=== PATIENT | female | born 1960 | race Caucasian/White ===

== ENCOUNTER 2017-05-06 08:14 | Emergency (ER) | payer OTHER ==
[2017-05-06 08:20] VITALS: BP 132/69; PULSE 93; RESP 16; TEMP 97.2
--- NOTE | 2017-05-06 08:38 | ED ---
Abdominal Pain HPI - General Chief Complaint: Abdominal Pain Stated Complaint: pain, female gu Time Seen by Provider: 05/06/17 08:23 Source: patient, RN notes reviewed, old records reviewed Mode of arrival: ambulatory Limitations: no limitations - History of Present Illness Initial Comments: This is a 56-year-old female presents emergency department today chief complaint of dysuria for the past week, and vaginal itching and burning with urination. She denies any specific discharge. She reports that she thought was Cynthia infection, she took a Diflucan one week ago. She reports that her symptoms continue to persist. She states it is very pruritic, and she denies that she has scratched the area around. She reports that she's had no fever or chills. No nausea or vomiting o chest pain or shortness of breath. She reports that she has some suprapubic pain radiating towards the left lower quadrant. She reports that she has no uterus or left ovary. 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 She reports she is also currently undergoing menopause. She's been using Premarin cream due to vaginal dryness and itching. She states is not helping as well. - Related Data Previous Rx's Medication Instructions Recorded Ihsioket-Tphfesrhmc-Pvyx Oint 1 applic TOPICAL DAILY #15 packet 05/06/17 [Triple Antibiotic Ointment] Nitrofurantoin Monohyd/M-Cryst 100 mg PO Q12HR #14 cap 05/06/17 [Macrobid] Allergies Allergy/AdvReac Type Severity Reaction Status Date / Time levothyroxine Allergy Unknown Verified 05/06/17 08:20 Review of Systems ROS Statement: Those systems with pertinent positive or pertinent negative responses have been documented in the HPI. ROS Other: All systems not noted in ROS Statement are negative. Past Medical History Past Medical History: Thyroid Disorder History of Any Multi-Drug Resistant Organisms: None Reported Past Surgical History: Hysterectomy Past Psychological History: No Psychological Hx Reported Smoking Status: Never smoker Past Alcohol Use History: Occasional Past Drug Use History: None Reported General Exam - General Exam Comments Initial Comments: This is a 56-year-old female. No acute distress. Limitations: no limitations General appearance: alert, in no apparent distress Head exam: Present: atraumatic, normocephalic, normal inspection Eye exam: Present: normal appearance, PERRL, EOMI. Absent: scleral icterus, conjunctival injection, periorbital swelling Neck exam: Present: normal inspection. Absent: tenderness, meningismus, lymphadenopathy Respiratory exam: Present: normal lung sounds bilaterally. Absent: respiratory distress, wheezes, rales, rhonchi, stridor Cardiovascular Exam: Present: regular rate, normal rhythm, normal heart sounds. Absent: systolic murmur, diastolic murmur, rubs, gallop, clicks GI/Abdominal exam: Present: soft, tenderness (suprapubic tenderness), normal bowel sounds. Absent: distended, guarding, rebound, rigid External exam: Absent: normal external exam (Patient has 1cm lesion over left labia minora, no other lesions. Patient lesion appears to be related to dryness and irritation. No blister-herpetic lesions. ) Speculum exam: Present: normal speculum exam Extremities exam: Present: normal inspection, full ROM, normal capillary refill. Absent: tenderness, pedal edema, joint swelling, calf tenderness Back exam: Present: normal inspection Neurological exam: Present: alert Psychiatric exam: Present: normal affect, normal mood Skin exam: Present: warm, dry, intact, normal color. Absent: rash Course Vital Signs 05/06/17 08:17 Temperature 97.2 F L Pulse Rate 93 Respiratory 16 Rate Blood Pressure 132/69 O2 Sat by Pulse 99 Oximetry Medical Decision Making - Medical Decision Making 56-year-old female presents emergency room with a chief complaint of polyuria, dysuria, and a lesion over her labia is painful whenever she urinates. Patient states that she has a history of atrophic vaginitis, needs to be on Premarin. She is up-to-date on some time, she borrowed her sisters and reports that she was somewhat help. She did take Diflucan as well as he was eased infection. Patient does have one small lesion over the labia minora. Does not appear to be herpetic [place] blisterlike. Patient purchased I tested for herpes a few years ago and was told that she does not have herpes within her work. 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 Patient reports that she has fever or chills. Minimal suprapubic tenderness on exam. Patient urinalysis was completed, no significant signs for infection. Patient's urine appears to be somewhat diluted due to her increased fluid intake. Urine culture will be obtained. Discussed that was seems patient has a ulceration over her labia due to dryness, atrophic vaginitis. Discussed following up with [facility]. Given a referral for [facility] on-call. Discussed putting triple anabiotic ointment over the area as well. Patient agrees to treatment plan will comply. Return parameters were discussed. - Lab Data Lab Results 05/06/17 Range/Units 08:30 Urine Color Light Yellow Urine Appearance Clear (Clear) Urine pH 5.0 (5.0-8.0) Ur Specific [place] 1.004 (1.001-1.035) Urine Protein Negative (Negative) Urine Glucose (UA) Negative (Negative) Urine Ketones Negative (Negative) Urine Blood Negative (Negative) Urine Nitrite Negative (Negative) Urine Bilirubin Negative (Negative) Urine Urobilinogen <2.0 (<2.0) mg/dL Ur Leukocyte Esterase Negative (Negative) Disposition Clinical Impression: Labia irritation, Dysuria Disposition: HOME SELF-CARE Condition: Good Instructions: Vaginal Atrophy (ED) Additional Instructions: Patient advised to apply the antibiotic ointment over the area. Follow-up with [facility]. Take the medications as prescribed. Return to the emergency department if any alarming signs or symptoms occur. Prescriptions: Zcflclut-Nibwekasgi-Bgoz Oint [Triple Antibiotic Ointment] 1 applic TOPICAL DAILY #15 packet Nitrofurantoin Monohyd/M-Cryst [Macrobid] 100 mg PO Q12HR #14 cap Referrals: None,Stated [REFERRING] - 1-2 days Gregoria Valencia MD [STAFF PHYSICIAN] - 1-2 days Time of Disposition: 08:57
[2017-05-06 08:45] LABS: Appearance,Urine Clear (Clear); Bilirubin,Urine Negative (Negative); Blood,Urine Negative (Negative); Color,Urine Light Yellow; Glucose,Urine (UA) Negative (Negative); Ketones,Urine Negative (Negative); Leukocyte Esterase,Urine Negative (Negative); Nitrite,Urine Negative (Negative); Protein,Urine Negative (Negative); Specific Gravity,Urine 1.004 (1.001-1.035); Urobilinogen,Urine <2.0 mg/dL (<2.0)
[2017-05-08 10:50] LABS: Chlamydia trachomatis rRNA Not detected (Not detected); Neisseria gonorrhoeae rRNA Not detected (Not detected)
== END 2017-05-06 09:11 | disposition home or self-care (01) ==
LOC: EC 08:14
DX: N89.8 Other specified noninflammatory disorders of vagina (principal); R30.0 Dysuria; Z88.8 Allergy status to other drugs, medicaments and biological substances; Z90.710 Acquired absence of both cervix and uterus
CPT/HCPCS: 81003; 87070; 87086; 87205; 87491; 87591; 87808; 99284

== ENCOUNTER → 2017-07-18 | Outpatient (CLI) | payer OTHER ==
[2017-07-18 08:14] VITALS: BP 141/81; PULSE 66; TEMP 98.7; BMI 36.1
--- NOTE | 2017-07-18 09:12 | P.HPOB ---
History of Present Illness H&P Date: 07/18/17 Chief Complaint: The patient is here for her routine gynecologic exam and mammogram. This is a 56-year-old with an LMP of 2011. The patient status post [facility] for benign reasons. The patient states she has occasional right pelvic pains. This can occur about 1 to 2 times per week. She does have a history of ovarian cysts in the past. She denies hot flashes. She does have occasional mood swings and night sweats. She also has been having vaginal dryness which has improved with vaginal estrogen tablets. It has been about one year since her last pelvic exam. Review of Systems She denies respiratory, cardiac, or G.I. problems. She states her weight can fluctuate by 5 to 10 pounds. Past Medical History Past Medical History: Hyperlipidemia, Thyroid Disorder Additional Past Medical History / Comment(s): She also has a history of seasonal allergies and diverticulosis. 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 This resolved. She denies any other history of STDs. History of Any Multi-Drug Resistant Organisms: None Reported Past Surgical History: Hysterectomy (TIFFANY in 2011 done for uterine fibroids and abnormal bleeding. This was benign.) Additional Past Surgical History / Comment(s): She also had a previous surgery for ovarian cystectomy. She had a colonoscopy in 2017. Past Psychological History: No Psychological Hx Reported Smoking Status: Never smoker Past Alcohol Use History: Occasional (Approximately 2 drinks per month.) Past Drug Use History: None Reported - Past Family History Mother Family Medical History: COPD Additional Family Medical History / Comment(s): Maternal aunt had breast cancer , cousin had colon cancer in another cousin had cervical cancer. Medications and Allergies Home Medications and Allergies Comment(s): Synthroid 75 g daily, simvastatin 20 mg daily, Claritin 10 mg daily, vitamin D 2000 units daily and Premarin vaginal cream twice weekly. Home Medications Medication Instructions Recorded Confirmed Type Rnxvfjae-Zqufiyzjjx-Empi Oint 1 applic TOPICAL DAILY #15 packet 05/06/17 Rx [Triple Antibiotic Ointment] Nitrofurantoin Monohyd/M-Cryst 100 mg PO Q12HR #14 cap 05/06/17 Rx [Macrobid] Allergies Allergy/AdvReac Type Severity Reaction Status Date / Time levothyroxine Allergy Unknown Verified 05/06/17 08:20 Exam - Vital Signs Vital signs: Vital Signs Temp Pulse BP 07/18/17 08:04 98.7 F 66 141/81 Intake and Output 07/17/17 07/18/17 07/18/17 22:59 06:59 14:59 Other: Weight 86.636 kg Height 5'1", BMI 36. This is a well-developed well-nourished white female who is alert and oriented times 3 in no acute distress. HEENT: Within normal limits. NECK: Supple without mass or thyromegaly. CHEST AND LUNGS: Clear to auscultation. HEART: Regular rate and rhythm. BREASTS: Are without mass or discharge. AXILLARY EXAM: Negative for adenopathy. BACK: Negative for CVA tenderness. ABDOMEN: obese, Soft, nontender, without palpable masses. PELVIC EXAM: Normal external genitalia with mild atrophy. Vagina appearS normal with mild atrophy. There is no unusual discharge. There is no evidence of prolapse. There are no palpable adnexal masses or tenderness. RECTAL EXAM: rectovaginal exam is negative for mass or tenderness and is negative for occult blood. EXTREMITIES: Nontender. IMPRESSION: 1. 56-year-old menopausal female who is status post TIFFANY for benign reasons with normal gynecologic exam. 2. Intermittent right pelvic pains without any significant physical findings at this time. 3. Vaginal dryness improved with vaginal estrogen. She is requesting to go back on the vaginal tablet. PLAN: 1. Pap smears have been discontinued. 2. Self breast examination was discussed. 3. Screening mammogram will be done today. 4. Vagifem 10 g intravaginally 2 times weekly. 5. Pelvic ultrasound will be scheduled. 6. Osteoporosis prevention was discussed. 7. She will return in one year.
--- NOTE | 2017-07-19 11:57 | MM ---
Reason for exam: screening (asymptomatic). Last mammogram was performed 10 months ago. History: Family history of breast cancer in maternal aunt at age 50. Physical Findings: A clinical breast exam by your physician is recommended on an annual basis and results should be correlated with mammographic findings. MG Screening Mammo w CAD Bilateral CC and MLO view(s) were taken. Prior study comparison: September 12, 2016, mammogram. December 18, 2015, mammogram. January 09, 2015, mammogram. May 31, 2013, mammogram. There are scattered fibroglandular densities. There are benign appearing bilateral stable circumscribed masses. No suspicious abnormality. ASSESSMENT: Benign, BI-RAD 2 RECOMMENDATION: Routine screening mammogram of both breasts in 1 year.
== END | disposition home or self-care (01) ==
LOC: WWCWWP 07:58
PROVIDERS: ATTEND Obstetrics & Gynecology
DX: Z12.31 Encounter for screening mammogram for malignant neoplasm of breast (principal)
CPT/HCPCS: 77067

== ENCOUNTER → 2017-07-25 | Outpatient (CLI) | payer OTHER ==
--- NOTE | 2017-07-25 11:44 | US ---
EXAMINATION TYPE: US pelvic complete DATE OF EXAM: 07/25/2017 COMPARISON: NONE CLINICAL HISTORY: R10.2 Pelvic Pain. Right pelvic pain x 1 month, 3, para 2, miscarriage 1, h istory of hysterectomy and partial left oophorectomy 6 years ago TECHNIQUE: . Transabdominal sonographic images of the pelvis were acquired. Transvaginal sonographi c images were medically necessary to better assess the following anatomy: right ovary Date of LMP: 10+ years ago EXAM MEASUREMENTS: Uterus: surgically absent Endometrial Stripe: surgically absent Right Ovary: not seen Left Ovary: not seen 1. Uterus: surgically absent 2. Endometrium: surgically absent 3. Right Ovary: not seen due to overlying bowel gas 4. Left Ovary: not seen due to overlying bowel gas 5. Bilateral Adnexa: wnl 6. Posterior cul-de-sac: wnl IMPRESSION: Postop changes. No significant abnormalities evident.
== END | disposition home or self-care (01) ==
LOC: RADUSWWP 07:45
PROVIDERS: ATTEND Obstetrics & Gynecology
DX: R10.2 Pelvic and perineal pain (principal); Z98.890 Other specified postprocedural states
CPT/HCPCS: 76830; 76857

== ENCOUNTER 2018-07-04 03:20 | Emergency (ER) | payer OTHER ==
[2018-07-04 03:27] VITALS: BP 125/81; RESP 18; TEMP 98.6
[2018-07-04] MEDS ORDERED: ALBUTEROL NEBULIZED 2.5 MG/3 ML INHALATION STA (04:03)
--- NOTE | 2018-07-04 04:32 | ED ---
URI HPI - General Chief Complaint: Upper Respiratory Infection Stated Complaint: URI Time Seen by Provider: 07/04/18 03:58 Source: patient Mode of arrival: ambulatory Limitations: no limitations - History of Present Illness Initial Comments: This patient is 57-year-old woman who presents to have evaluation of her cough, congestion, chest and back aches. The patient states that her symptoms began on Monday with congestion and cough. She states that she was seen by the clinic doctor and was diagnosed with influenza A. She states she was given course of antibiotics and also steroids. Patient presents to have reevaluation because she has continued to cough and now is having some chest and back pains with cough. Patient is not complaining of significant dyspnea but she does note that she is having wheezing that she does not usually. MD Complaint: cough, rhinorrhea, nasal congestion Onset/Timin -: days(s) Consistency: constant Improves With: nothing Worsens With: nothing Associated Symptoms: nasal congestion, cough Treatments Prior to Arrival: antibiotics, other (Steroid) - Related Data Previous Rx's Medication Instructions Recorded Ehssnkoo-Kyjrfjsnnz-Axhx Oint 1 applic TOPICAL DAILY #15 packet 05/06/17 [Triple Antibiotic Ointment] Nitrofurantoin Monohyd/M-Cryst 100 mg PO Q12HR #14 cap 05/06/17 [Macrobid] Albuterol Inhaler [Ventolin Hfa 1 - 2 puff INHALATION Q6HR PRN #1 07/04/18 Inhaler] inhaler Promethazine 6.25MG/5Ml [Phenergan 5 ml PO Q4HR PRN #120 ml 07/04/18 Syrup] Allergies Allergy/AdvReac Type Severity Reaction Status Date / Time levothyroxine Allergy Unknown Verified 07/04/18 03:27 Review of Systems ROS Statement: Those systems with pertinent positive or pertinent negative responses have been documented in the HPI. ROS Other: All systems not noted in ROS Statement are negative. Constitutional: Reports: fever. Denies: weakness Respiratory: Reports: as per HPI, cough, wheezes. Denies: dyspnea, hemoptysis Cardiovascular: Reports: as per HPI, chest pain. Denies: palpitations, orthopnea, edema, syncope Gastrointestinal: Denies: abdominal pain, vomiting, diarrhea Musculoskeletal: Reports: back pain Skin: Denies: rash Neurological: Denies: headache, weakness, numbness Past Medical History Past Medical History: Hyperlipidemia, Thyroid Disorder Additional Past Medical History / Comment(s): diverticulosis, HPV History of Any Multi-Drug Resistant Organisms: None Reported Past Surgical History: Hysterectomy Additional Past Surgical History / Comment(s): ovarian cystectomy. colonosscopy. Past Psychological History: No Psychological Hx Reported Smoking Status: Never smoker Past Alcohol Use History: Occasional Past Drug Use History: None Reported - Past Family History Mother Family Medical History: COPD Additional Family Medical History / Comment(s): Maternal aunt had breast cancer, cousin had colon cancer in another cousin had cervical cancer. General Exam Limitations: no limitations General appearance: alert, in no apparent distress Head exam: Present: atraumatic, normocephalic Eye exam: Present: normal appearance ENT exam: Present: normal oropharynx Neck exam: Present: normal inspection Respiratory exam: Present: wheezes, chest wall tenderness. Absent: respiratory distress, rales, rhonchi, stridor, accessory muscle use, decreased breath sounds, prolonged expiratory Cardiovascular Exam: Present: regular rate, normal rhythm, normal heart sounds. Absent: systolic murmur, diastolic murmur, rubs, gallop GI/Abdominal exam: Present: soft. Absent: distended, tenderness, guarding, rebound, rigid, mass Extremities exam: Present: normal inspection, normal capillary refill. Absent: pedal edema, calf tenderness Back exam: Present: normal inspection, paraspinal tenderness. Absent: CVA tenderness (R), CVA tenderness (L), vertebral tenderness Neurological exam: Present: alert Skin exam: Present: warm, dry, intact, normal color. Absent: rash Course Vital Signs 07/04/18 07/04/18 07/04/18 03:23 04:23 04:30 Temperature 98.6 F Pulse Rate 89 85 85 Respiratory 18 Rate Blood Pressure 125/81 O2 Sat by Pulse 98 Oximetry Disposition Clinical Impression: Bronchitis Disposition: HOME SELF-CARE Condition: Fair Instructions (If sedation given, give patient instructions): Acute Bronchitis (ED) Prescriptions: Albuterol Inhaler [Ventolin Hfa Inhaler] 1 - 2 puff INHALATION Q6HR PRN #1 inhaler PRN Reason: Wheezing Promethazine 6.25MG/5Ml [Phenergan Syrup] 5 ml PO Q4HR PRN #120 ml PRN Reason: Cough Is patient prescribed a controlled substance at d/c from ED?: No Referrals: Urmila Russell MD [Primary Care Provider] - 1-2 days
[2018-07-04] MEDS ORDERED: IBUPROFEN 400 MG TAB PO STA ×2 (04:53→05:06)
--- NOTE | 2018-07-04 04:56 | XR ---
EXAM: XR Chest, 1 View CLINICAL HISTORY: ITS.REASON XR Reason: Pain TECHNIQUE: Frontal view of the chest. COMPARISON: No relevant prior studies available. FINDINGS: Accentuation of the cardiac and mediastinal silhouette by portable technique. Suspect cardiac silhouette is upper limits normal size allowing for technique. No overt edema, consolidation or other acute cardiopulmonary findings. IMPRESSION: No acute cardiopulmonary findings.
[2018-07-04 05:26] VITALS: PULSE 65
== END 2018-07-04 05:26 | disposition home or self-care (01) ==
LOC: EC 03:20 → SUPCPDRO 03:20 → EC 05:26
DX: J40 Bronchitis, not specified as acute or chronic (principal); Z88.8 Allergy status to other drugs, medicaments and biological substances
CPT/HCPCS: 71045; 94640; 99283

== ENCOUNTER → 2018-09-18 | Outpatient (CLI) | payer OTHER ==
[2018-09-18 09:29] VITALS: BP 139/82; PULSE 57; RESP 16; TEMP 97.7; BMI 35.5
--- NOTE | 2018-09-18 10:07 | P.HPOB ---
History of Present Illness H&P Date: 09/18/18 Chief Complaint: The patient is here for her routine gynecologic exam and ma mmogram. This is a 58-year-old with an LMP [id number]. The patient is status post [facility] for benign reasons. The patient no longer is using vaginal estrogen and has been doing fine with KY jelly. She uses this for vaginal dryness. The patient denies hot flashes. She is without gynecologic complaints. Review of Systems The patient has gained four pounds over the last year. She denies respiratory, cardiac, or G.I. problems. Past Medical History Past Medical History: Hyperlipidemia, Thyroid Disorder Additional Past Medical History / Comment(s): diverticulosis and seasonal allergies. 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 She has no other history of STDs. History of Any Multi-Drug Resistant Organisms: None Reported Past Surgical History: Hysterectomy Additional Past Surgical History / Comment(s): ovarian cystectomy. colonoscopy 2017. TIFFANY in 2011. 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 - Past Family History Mother Family Medical History: COPD Additional Family Medical History / Comment(s): Maternal aunt had breast cancer, cousin had colon cancer in another cousin had cervical cancer. Medications and Allergies Home Medications Medication Instructions Recorded Confirmed Type Albuterol Inhaler [Ventolin Hfa 1 - 2 puff INHALATION Q6HR PRN #1 07/04/18 09/18/18 Rx Inhaler] inhaler Biotin 5,000 mcg PO DAILY 09/18/18 09/18/18 History Cholecalciferol (Vitamin D3) 2,000 unit PO DAILY 09/18/18 09/18/18 History [Vitamin D3] Simvastatin [Zocor] 20 mg PO DAILY 09/18/18 09/18/18 History Zinc 50 mg PO DAILY 09/18/18 09/18/18 History Allergies Allergy/AdvReac Type Severity Reaction Status Date / Time levothyroxine Allergy Unknown Verified 09/18/18 09:21 Exam Vital Signs Temp Pulse Resp BP Pulse Ox 09/18/18 09:25 97.7 F 57 L 16 139/82 97 Intake and Output 09/17/18 09/18/18 09/18/18 22:59 06:59 14:59 Other: Weight 85.275 kg Height 5'1", weight 188 pounds, BMI 35.5. This is a well-developed well-nourished heavyset white female who is alert and oriented times 3 in no acute distress. HEENT: Within normal limits. NECK: Supple without mass or thyromegaly. CHEST AND LUNGS: Clear to auscultation. HEART: Regular rate and rhythm. BREASTS: Are without mass or discharge. AXILLARY EXAM: Negative for adenopathy. BACK: Negative for CVA tenderness. ABDOMEN: Soft, nontender, without palpable masses. PELVIC EXAM: External genitalia appears normal with mild atrophy. Vagina appears normal with mild atrophy. There is a grade 2 cystocele. The vaginal cuff is well supported. Bimanual examination is negative for mass or tenderness. RECTAL EXAM: Rectovaginal exam is negative for mass or tenderness and is negative for occult blood. EXTREMITIES: Nontender. IMPRESSION: 1. 58-year-old menopausal female status post TIFFANY with asymptomatic grade 2 cystocele. PLAN: 1. Pap smears have been discontinued. 2. Self breast awareness was discussed with the patient. 3. Screening mammogram will be done today. 4. Osteoporosis prevention was discussed. I have stressed the importance of adequate calcium, vitamin D and regular exercise. Recommended amounts of calcium and vitamin D were also discussed. 5. She was advised to return in one year for her annual well woman exam.
--- NOTE | 2018-09-19 08:44 | MM ---
Reason for exam: screening (asymptomatic). Last mammogram was performed 1 year and 2 months ago. History: Family history of breast cancer in maternal aunt at age 50. Physical Findings: A clinical breast exam by your physician is recommended on an annual basis and results should be correlated with mammographic findings. MG Screening Mammo w CAD Bilateral CC and MLO view(s) were taken. Prior study comparison: July 18, 2017, bilateral MG screening mammo w CAD. September 12, 2016, mammogram. There are scattered fibroglandular densities. There is a stable right upper outer quadrant posterior depth mass back to 2013. No suspicious abnormality. Benign right upper inner quadrant anterior depth fat necrosis. No significant changes when compared with prior studies. ASSESSMENT: Benign, BI-RAD 2 RECOMMENDATION: Routine screening mammogram of both breasts in 1 year.
== END ==
LOC: WWCWWP 08:40
PROVIDERS: ATTEND Obstetrics & Gynecology
DX: Z12.31 Encounter for screening mammogram for malignant neoplasm of breast (principal)
CPT/HCPCS: 77067

== ENCOUNTER → 2019-12-24 | Outpatient (CLI) | payer BC, OTHER ==
--- NOTE | 2019-12-25 13:36 | MM ---
Reason for exam: screening (asymptomatic). Last mammogram was performed 1 year and 3 months ago. History: Family history of breast cancer in maternal aunt at age 50. Physical Findings: A clinical breast exam by your physician is recommended on an annual basis and results should be correlated with mammographic findings. MG Screening Mammo w CAD Bilateral CC, MLO, and XCCL view(s) were taken. Prior study comparison: September 18, 2018, bilateral MG screening mammo w CAD. July 18, 2017, bilateral MG screening mammo w CAD. The breast tissue is almost entirely fat. There is chronic nodularity bilaterally. No significant changes when compared with prior studies. ASSESSMENT: Benign, BI-RAD 2 RECOMMENDATION: Routine screening mammogram of both breasts in 1 year.
== END | disposition home or self-care (01) ==
LOC: RADMAMWWP 16:13
PROVIDERS: ATTEND Obstetrics & Gynecology
DX: Z12.31 Encounter for screening mammogram for malignant neoplasm of breast (principal)
CPT/HCPCS: 77067

== ENCOUNTER → 2021-03-29 | Outpatient (CLI) | payer BC, OTHER ==
[2021-03-29 11:08] LABS: HCT 36.4 % (34.0-46.0); HGB 12.5 gm/dL (11.4-16.0); MCH 30.2 pg (25.0-35.0); MCHC 34.5 g/dL (31.0-37.0); MCV 87.6 fL (80.0-100.0); Mean Platelet Volume 7.2; Platelet Count 372 k/uL (150-450); RBC 4.16 m/uL (3.80-5.40); WBC 7.9 k/uL (3.8-10.6)
[2021-03-29 11:21] LABS: Albumin 3.9 g/dL (3.5-5.0); Appearance,Urine Clear (Clear); Bilirubin,Urine Negative (Negative); Blood,Urine Negative (Negative); Calcium 9.6 mg/dL (8.4-10.2); Color,Urine Light Yellow; Glucose,Urine (UA) Negative (Negative); Ketones,Urine Negative (Negative); Leukocyte Esterase,Urine Negative (Negative); Nitrite,Urine Negative (Negative); PH, Urine 7.5 (5.0-8.0); Potassium 4.3 mmol/L (3.5-5.1); Protein,Urine Negative (Negative); Specific Gravity,Urine 1.011 (1.001-1.035); Total Bilirubin 0.4 mg/dL (0.2-1.3); Urobilinogen,Urine <2.0 mg/dL (<2.0)
[2021-03-29 11:25] LABS: INR 0.9 (<1.2); Partial Thromboplastin Time 22.6 sec (22.0-30.0); Prothrombin Time 9.5 sec (9.0-12.0)
== END | disposition home or self-care (01) ==
LOC: LABPAT 09:57
PROVIDERS: ATTEND Orthopaedic Surgery
DX: Z01.812 Encounter for preprocedural laboratory examination (principal); M17.11 Unilateral primary osteoarthritis, right knee
CPT/HCPCS: 80053; 81003; 85027; 85610; 85730; 87070

== ENCOUNTER 2021-04-07 10:54 | Day surgery (SDC) | payer BC, OTHER ==
[2021-04-01 15:44] VITALS: BMI 35.9
[~2021-04-07 10:54] MED LIST: ACETAMINOPHEN TAB 500 MG TAB PO PRN; DEXAMETHASONE SOD PHOSPHATE 10 MG/ML 1 ML VIAL IV PRN; DEXAMETHASONE SOD PHOSPHATE 4 MG/ML 1 ML VIAL IV ONE; DOCUSATE 100 MG CAP PO PRN; FAMOTIDINE 20 MG/2 ML VIAL IVP PRN; HYDROmorphone 0.5 MG/0.5 ML SYRINGE IVP PRN; KETOROLAC 15 MG/ML 1 ML VIAL IVP PRN; LIDOCAINE 1% (10MG/ML) FOR IV START INTRADERMA PRN; MIDAZOLAM 2 MG/2 ML VIAL IV PRN; ONDANSETRON 4 MG/2 ML VIAL IVP ONE; ONDANSETRON 4 MG/2 ML VIAL IVP PRN; ROPIVACAINE 246.25 MG, EPINEPHrine 0.5 MG, KETOROLAC (30 mg/mL) 30 MG, cloNIDine HCL/PF... MISCELLANE PRN; TRANEXAMIC ACID 1,000 MG in SODIUM CHLORIDE 0.9% 100 ML IVPB PRN; VANCOMYCIN 1,000 MG in SODIUM CHLORIDE 0.9% 250 ML IVPB PRN; oxyCODONE ER 10 MG TAB.ER.12H PO PRN
[2021-04-07] MEDS ORDERED: ROPIVACAINE/EPI/CLONIDINE/KET 50 ML SYRINGE MISCELLANE PRN (11:07)
[2021-04-07] MEDS ORDERED: TRANEXAMIC ACID 1,000 MG in SODIUM CHLORIDE 0.9% 100 ML IVPB ONE (11:20)
[2021-04-07] MEDS ORDERED: KETOROLAC 30 MG/ML 1 ML VIAL ONE (11:37)
[2021-04-07] MEDS: LACTATED RINGERS 1,000 ML IV SCH ×2 (11:45→18:37)
--- NOTE | 2021-04-07 12:28 | P.ANPRN ---
Procedure Note - Anesthesia - Nerve Block Performed Right Adductor Canal Single Time Out Performed: Yes Date of Procedure: 04/07/21 Procedure Start Time: 12:07 Procedure Stop Time: 12:12 Location of Patient: PreOp Indication: Acute Post-Operative Pain, Requested by Surgeon Sedation Type: Sedate with meaningful contact maintained Preparation: Sterile Prep, Sterile Dressing Position: Supine Catheter: None Needle Types: Facet Needle Gauge: 20 Ultrasound used to visualize needle placement: Yes Ultrasound used to observe medication spread: Yes Injectate: 0.5% Ropivacaine (see comment for volume) (20 ml + decadron 4 mg) Blood Aspirated: No Pain Paresthesia on Injection Noted: No Resistance on Injection: Normal Image Stored and Saved: Yes Events: Uneventful and Well Tolerated Right iPack Single Time Out Performed: Yes Date of Procedure: 04/07/21 Procedure Start Time: 12:13 Procedure Stop Time: 12:16 Location of Patient: PreOp Indication: Acute Post-Operative Pain, Requested by Surgeon Sedation Type: Sedate with meaningful contact maintained Preparation: Sterile Prep, Sterile Dressing Position: Left Lateral Catheter: None Needle Types: Facet Needle Gauge: 20 Ultrasound used to visualize needle placement: Yes Ultrasound used to observe medication spread: Yes Injectate: 0.5% Ropivacaine (see comment for volume) (10 ml + decadron 2 mg) Blood Aspirated: No Resistance on Injection: Normal Image Stored and Saved: Yes Events: Uneventful and Well Tolerated
[2021-04-07] MEDS ORDERED: ceFAZolin 3,000 MG in SODIUM CHLORIDE 0.9% IRRIGATIO 3,000 ML IRRIGATION ONE (14:05)
[2021-04-07] MEDS ORDERED: LACTATED RINGERS 1,000 ML IV ONE (15:38)
[2021-04-07] MEDS ORDERED: HYDROcodone/APAP 5-325MG 1 EACH TAB PO PRN (16:17)
[2021-04-07] MEDS ORDERED: ONDANSETRON 4 MG/2 ML VIAL IVP PRN (16:17)
[2021-04-07] MEDS ORDERED: HYDROmorphone 0.2 MG/1 ML SYRINGE IVP PRN (16:17)
[2021-04-07] MEDS ORDERED: HYDROmorphone 1 MG/ML 1 ML SYRINGE IVP PRN (16:17)
[2021-04-07] MEDS ORDERED: NALOXONE 0.4 MG/ML 1 ML VIAL IV PRN (16:17)
--- NOTE | 2021-04-07 16:40 | P.OP ---
Date of Procedure: 04/07/21 Preoperative Diagnosis: 1. Right knee osteoarthritis 2. BMI 38.5 Postoperative Diagnosis: Same Procedure(s) Performed: Right total knee arthroplasty Implants: 1. Andi triathlon size #3 CR femur 2. Irving triathlon size #3 universal tibial baseplate 3. Andi triathlon size #3, 9 mm CS polyethylene 4. Andi triathlon 27 mm symmetric patellar button Anesthesia: spinal Surgeon: Onesimo Jackson Ship Surveyor #1: Jolynn Briggs Estimated Blood Loss (ml): 150 IV fluids (ml): 1,200 Pathology: none sent Condition: stable Disposition: PACU Indications for Procedure: The patient is a very pleasant previously healthy 60-year-old female who has had a long-standing history of problems with right knee pain. She had seen several providers before knee and had been treated for over 1 year with progressively worsening knee pain. She had failed a long course of nonsurgical treatment and came in requesting total knee arthroplasty. She had x-rays and an MRI that showed diffuse tricompartmental arthritis. She had previously responded well to an intra-articular corticosteroid injection, but eventually developed tolerance to her injections. She had no pain in her hip and x-rays were normal. I sent her to a spine doctor to evaluate her back and he felt all of the pain in her leg was coming from her knee. We discussed continued nonsurgical treatment, arthroscopy, and arthroplasty. Due to the patient's diffuse pain and tricompartmental arthritis we both agreed that she had filled conservative treatment and was a good candidate for a total knee replacement. We discussed the potential risks and complications of surgery including but certainly not limited to risks from anesthesia, superficial infection, deep periprosthetic joint infection, extensor mechanism problems, loosening, instability, stiffness, damage to local blood vessels or nerves, periprosthetic fracture, and inability to regain preinjury level of function, generalized to satisfaction with her surgical outcome, DVT, PE, other medical complications, need for revision surgery, and possibly loss of life or limb. The patient voiced her understanding of these potential complications and also acknowledges that other, less common complications are possible. The patient provided her verbal and written consent to go forward with surgery. Operative Findings: The patient had severe full-thickness cartilage loss in the medial and patellofemoral compartment and moderate grade cartilage loss in the lateral compartment Description of Procedure: The patient is identified in preoperative holding and the correct right leg was marked with my initials. We reviewed the consent form and all of her questions were answered. A block was placed by anesthesia. The patient was then brought back to the operating room. She was given a spinal anesthetic. She was carefully transferred onto the operating room table. The tourniquet was applied to the proximal aspect of the right leg. The patient was secured to the OR table and a foot rest and post were placed to allow the leg to sit at 90 of flexion. A chlorhexidine pre-scrub was performed. The right leg was then p repped and draped in the standard sterile fashion. Prior to starting surgery timeout was performed identifying the correct patient, operative extremity, and procedure. The patient's leg was then elevated, exsanguinated with an Esmarch bandage, and the tourniquet was inflated to 300 mmHg. I began by making a straight anterior approach to the knee. Dissection was carried down through the first fascial layer. Medial and lateral flaps were raised deep to the fascia. I performed a medial parapatellar arthrotomy. There was a large serous effusion. On inspection of the joint there was full-th ickness cartilage loss in the medial and patellofemoral compartments and moderate cartilage loss in the lateral compartment. A medial release was then performed followed by excision of the fat pad. The patella was measured and provisionally cut using a freehand technique. The ACL, PCL, and anterior horn of the lateral meniscus were excised. Entrance the femoral canal was then gained with an opening drill. An intramedullary guide was placed and the cut guide was set at a 5 valgus cut and an 8 mm resection. The cutting block was pinned in place, retractors were placed to protect the collateral ligaments and extensor mechanism, and the distal femoral cut was made. I verified that a flat cut was made using the intramedullary guide. Attention was then turned to the tibia. The tibia was completely subluxed out from under the femur and circumferentially exposed. An extra medullary guide was attached at the ankle. A 9 mm resection was measured off the lateral compartment and slope was matched the patient's anatomy. The cutting block was pinned into place and the tibia was cut with a sagittal saw. The cut portion of the tibia was removed. An 18 mm spacer block was then introduced to evaluate the extension space. The knee appeared straight, able to fully extend, and had reasonable balance. Attention was then turned to the flexion gap. The femur was initially sized to a size 4. A Guzman tensiometer was then used to set our flexion gap and rotation. The 4-in-1 size #4 cutting block was pinned into place and all cuts made using a sagittal saw. We sized the tibia at this point to a size #3. Remnants of the medial and lateral meniscus and posterior osteophytes were then removed area and local was injected. We then trialed with a size 4 femur, size 3 tibia and a 9 mm poly-. The knee fully extend and had flexion to 120. The knee was well balanced throughout flexion and extension. On inspection the size 4 femur overhung laterally. The trial components were removed and the 4-in-1 cutting block for a size 3 femur was placed and pinned and the anterior cut was made. There is no evidence of notching. We then trialed with a size 3 femur, size 3 tibial baseplate, and 9 mm poly-. The knee fully extended and flexed to 120. The knee was well balanced throughout. Drill holes were then made through the femoral trial for the lugs. The tibial baseplate was then pinned into place taking care to match rotation to the tibial tubercle reamed and punched. The patella was then sized and 3 lug holes were drilled. All trial implants were removed and the knee was thoroughly irrigated. We then proceeded to mix cement and implant the tibia, femur, and patellar button. The knee was fully extended and the cement was allowed to fully cure. The tourniquet was let down and all bleeders were controlled. All extra cement was removed. The knee was thoroughly irrigated with pulsatile lavage and a 3 minute dilute Betadine soaked. The knee fully extended and flexed to 120 with the final implants in place and the knee was well balanced throughout the arc of motion. The patella tracked midline once the tourniquet was down. A deep drain was placed. I nterrupted Vicryl stitches were used to reapproximate the extensor mechanism and arthrotomy. A multilayer closure was then performed using monofilament, barbed sutures. The skin was closed using Monocryl and reinforced with Dermabond. A sterile dressing was applied over the incision and drain. I verified that all instrument, sponge, and sharp counts were correct. The patient was then awoken from her sedation, transferred to a gurney, and brought to recovery having tolerated the procedure well. Jolynn Briggs PA-C was required as a skilled catering administrative assistant due to the complexity of the surgical procedure. Plan: The patient can weight-bear as tolerated on her right leg. She will receive postoperative training exam the cast it and postoperative antibiotics. We will remove her drain tomorrow. She will be managed with aspirin for DVT prophylaxis. We will plan on discharge home tomorrow for pain is controlled and she passes physical therapy.
--- NOTE | 2021-04-07 16:50 | XR ---
Limited right knee HISTORY: Postop status post arthroplasty 2 views the right knee Patient is status post right knee arthroplasty. There is anatomic alignment. Lucency is present withi n the soft tissues. There is a drain present anteriorly extending towards the region of the patellofe moral joint. IMPRESSION: Orthopedic follow-up.
[2021-04-07] MEDS: HYDROcodone/APAP 5-325MG 1 EACH TAB PO PRN (21:16)
[2021-04-07] MEDS: ASPIRIN 81 MG PO SCH (21:18)
[2021-04-07] MEDS: SENNOSIDES-DOCUSATE SODIUM 1 EACH TAB PO SCH (21:18)
[2021-04-08] MEDS: LACTATED RINGERS 1,000 ML IV SCH ×5 (01:32→23:40)
[2021-04-08 06:46] LABS: Basophils % (A) 0 %; Eosinophils % (A) 0 %; HCT 37.2 % (34.0-46.0); HGB 11.8 gm/dL (11.4-16.0); Lymphocytes # (A) 1.1 k/uL (1.0-4.8); Lymphocytes % (A) 7 %; MCH 29.3 pg (25.0-35.0); MCHC 31.7 g/dL (31.0-37.0); MCV 92.3 fL (80.0-100.0); Mean Platelet Volume 7.2; Monocytes # (A) 0.7 k/uL (0-1.0); Monocytes % (A) 4 %; Neutrophils # (A) 14.3 k/uL (1.3-7.7); Neutrophils % (A) 88 %; Platelet Count 383 k/uL (150-450); RBC 4.03 m/uL (3.80-5.40); RDW 11.9 % (11.5-15.5); WBC 16.2 k/uL (3.8-10.6)
[2021-04-08] MEDS: HYDROcodone/APAP 5-325MG 1 EACH TAB PO PRN ×3 (08:27→22:32)
[2021-04-08] MEDS: ASPIRIN 81 MG PO SCH ×2 (08:27→20:19)
[2021-04-08] MEDS: hydrOXYzine pamoate 25 MG CAP PO PRN ×2 (08:28→13:27)
--- NOTE | 2021-04-08 12:39 | P.PN ---
Subjective Progress Note Date: 04/08/21 This patient is a 60- year old female who is status-post right total knee arthroplasty on 04/07/21. Today is post-operative day #1. She is seen and examined bedside. She states the pain in her knee is well-controlled. Patient was up walking to the bedside commode last evening. Patient denies chest pain, shortness of breath, nausea, vomiting. Vital signs stable. Objective - Vital Signs Vital signs: Vital Signs Temp 98.4 F 04/08/21 05:00 Pulse 77 04/08/21 05:00 Resp 16 04/08/21 05:00 BP 120/79 04/08/21 05:00 Pulse Ox 91 L 04/08/21 05:00 Intake & Output 04/07/21 04/08/21 04/08/21 18:59 06:59 18:59 Intake Total 1551 1250 Output Total 100 80 Balance 1451 1170 Weight 92.4 kg Intake: IV 1551 Intake, IV Titration 1250 Amount Lactated Ringers 1,000 ml 1200 @ 100 mls/hr IV .Q10H GEORGETTE Rx#:[id number] ceFAZolin 2 gm In Sodium 50 Chloride 0.9% 50 ml @ 100 mls/hr IVPB Q8HR GEORGETTE Rx# :[id number] Output: Drainage 80 Right 80 Estimated Blood Loss 100 Other: Voiding Method Bedside Commode # Voids 1 4 - Exam On examination, patient is sitting up in the bed in no acute distress. She is alert and orientated x3. On inspection of the right knee, there is an Optifoam dressing intact. No bleeding or drainage through the dressing. Mild swelling of the knee. Motor and sensory function is intact of the right lower extremity. Dorsalis pedis pulse +2, right lower extremity is warm and well-perfused with brisk capillary refill. Calf is soft and non-tender. - Labs CBC & Chem 7: 04/08/21 05:55 Labs: Abnormal Lab Results - Last 24 Hours (Table) 04/08/21 Range/Units 05:55 WBC 16.2 H (3.8-10.6) k/uL Neutrophils # 14.3 H (1.3-7.7) k/uL Assessment and Plan Assessment: Status-post right total knee arthroplasty on 04/07/21. Post-operative day #1. Plan: - Patient may weight-bear as tolerated on the operative leg with a walker. - Keep OptiFoam dressing in place. - Drain was removed bedside this morning. - Physical therapy for gait and balance training. - Pain management as needed. Aspirin 81mg BID x 4 weeks for DVT prophylaxis. - Post-operative antibiotics complete. - Internal medicine consulted for gabriella-operative medical management. - Anticipate discharge home tomorrow with home health care and home PT.
[2021-04-08] MEDS: HYDROmorphone 0.5 MG/0.5 ML SYRINGE IVP PRN ×2 (15:51→20:18)
--- NOTE | 2021-04-08 17:05 | P.CONS ---
History of Present Illness - Reason for Consult Consult date: 04/08/21 - Chief Complaint Medical management - History of Present Illness 60-year-old woman with medical history of osteoarthritis, hyperlipidemia, hypothyroidism who presented for elective right arthroplasty of the knee. She is doing well postoperatively with her only complaint being pain in the knee, which she says improves with ambulation. She has no other complaints of nausea, vomiting, chest pain, palpitations, syncope, presyncope, cough, dyspnea, abdominal pain, constipation, diarrhea, dysuria, numbness/weakness. Her only medical issues are hypothyroidism and hyperlipidemia. Review of Systems All Systems reviewed and pertinent positives and negatives noted in HPI, all other symptoms are negative Past Medical History Past Medical History: Hyperlipidemia, Hypertension, Thyroid Disorder Additional Past Medical History / Comment(s): heart palpitations,diverticulosis and seasonal allergies. 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 She has no other history of STDs. History of Any Multi-Drug Resistant Organisms: None Reported Past Surgical History: Hysterectomy Additional Past Surgical History / Comment(s): ovarian cystectomy. colonoscopy 2016. TIFFANY in 2011. Past Anesthesia/Blood Transfusion Reactions: No Reported Reaction Type of Cardiac Device: Loop Device Placement Date:: Smoking Status: Never smoker - Past Family History Mother Family Medical History: COPD Additional Family Medical History / Comment(s): Maternal aunt had breast cancer, cousin had colon cancer in another cousin had cervical cancer. Medications and Allergies Home Medications Medication Instructions Recorded Confirmed Type Simvastatin [Zocor] 20 mg PO HS 09/18/18 04/07/21 History Levothyroxine Sodium [Synthroid] 75 mcg PO QAM 04/01/21 04/07/21 History Losartan Potassium 50 mg PO HS 04/01/21 04/07/21 History Aspirin 81 mg PO BID 30 Days #60 tab 04/08/21 Rx Diclofenac Sodium [Voltaren] 75 mg PO BID 30 Days #60 tab 04/08/21 Rx Docusate [Colace] 100 mg PO BID #60 capsule 04/08/21 Rx HYDROcodone/APAP 5-325MG [[place] 1 - 2 tab PO Q6HR PRN 7 Days #40 04/08/21 Rx 5-325] tab Omeprazole 40 mg PO DAILY 30 Days #30 cap 04/08/21 Rx Allergies Allergy/AdvReac Type Severity Reaction Status Date / Time levothyroxine Allergy SOB,dizziness,heart Verified 04/07/21 12:00 skip a beat, arm numbness morphine Allergy Rapid Verified 04/07/21 12:00 Heart Rate Physical Exam Osteopathic Statement: *. No significant issues noted on an osteopathic structural exam other than those noted in the History and Physical/Consult. Vitals: Vital Signs Temp Pulse Pulse Resp BP BP Pulse Ox 04/08/21 12:36 98.2 F 74 16 126/76 98 04/08/21 05:00 98.4 F 77 16 120/79 91 L 04/07/21 21:17 97.4 F L 84 16 116/74 99 04/07/21 17:51 97.9 F 85 17 131/85 99 04/07/21 17:07 73 16 134/72 100 Intake and Output 04/08/21 04/08/21 04/08/21 06:59 14:59 22:59 Intake Total 1250 Output Total 80 Balance 1170 Intake: Intake, IV Titration 1250 Amount Lactated Ringers 1,000 ml 1200 @ 100 mls/hr IV .Q10H GE[facility]GETTE Rx#:[id number] ceFAZolin 2 gm In Sodium 50 Chloride 0.9% 50 ml @ 100 mls/hr IVPB Q8HR GEORGETTE Rx# :[id number] Output: Drainage 80 Right 80 Other: # Voids 4 Gen: awake, alert HEENT: normocephalic, atraumatic, good hearing acuity, moist mucous membranes Resp: good air exchange, breathing comfortably with no accessory muscle use CVS: good distal perfusion x 4, GI: soft, NTTP, ND : no SPT, no CVAT, vidal catheter not present MSK: no pitting edema, no clubbing Neuro: non-focal, moving all extremities Psych: cooperative, euthymic mood Results CBC & Chem 7: 04/08/21 05:55 Labs: Abnormal Lab Results - Last 24 Hours (Table) 04/08/21 Range/Units 05:55 WBC 16.2 H (3.8-10.6) k/uL Neutrophils # 14.3 H (1.3-7.7) k/uL Assessment and Plan Assessment: Hyperlipidemia Hypothyroidism Right knee osteoarthritis status post arthroplasty Plan -Resume home Synthroid, simvastatin -Patient is ALLERGIC to the generic levothyroxine, and prefers to take her on Synthroid which is okay -Pain control -DVT prophylaxis -PT/OT Patient is full code
[2021-04-08] MEDS: SENNOSIDES-DOCUSATE SODIUM 1 EACH TAB PO SCH (20:19)
[2021-04-08] MEDS ORDERED: LOSARTAN 50 MG TAB PO SCH (21:00)
[2021-04-08] MEDS ORDERED: ATORVASTATIN 10 MG TAB PO SCH (21:00)
[2021-04-09] MEDS: HYDROcodone/APAP 5-325MG 1 EACH TAB PO PRN (04:05)
[2021-04-09 04:12] VITALS: BP 118/77; PULSE 72; RESP 18; TEMP 98.7
[2021-04-09 05:30] LABS: Basophils % (A) 0 %; Eosinophils # (A) 0.1 k/uL (0-0.7); Eosinophils % (A) 1 %; HCT 34.5 % (34.0-46.0); HGB 11.2 gm/dL (11.4-16.0); Lymphocytes # (A) 2.4 k/uL (1.0-4.8); Lymphocytes % (A) 22 %; MCH 30.3 pg (25.0-35.0); MCHC 32.4 g/dL (31.0-37.0); MCV 93.4 fL (80.0-100.0); Mean Platelet Volume 6.9; Monocytes # (A) 0.6 k/uL (0-1.0); Monocytes % (A) 6 %; Neutrophils # (A) 7.8 k/uL (1.3-7.7); Neutrophils % (A) 70 %; Platelet Count 345 k/uL (150-450); RBC 3.69 m/uL (3.80-5.40); RDW 12.7 % (11.5-15.5); WBC 11.1 k/uL (3.8-10.6)
[2021-04-09] MEDS: LACTATED RINGERS 1,000 ML IV SCH (05:58)
[2021-04-09] MEDS ORDERED: LEVOTHYROXINE 75 MCG TAB PO SCH (06:30)
[2021-04-09] MEDS: ASPIRIN 81 MG PO SCH (07:54)
[2021-04-09] MEDS ORDERED: HYDROcodone/APAP 5-325MG 1 EACH TAB PO PRN ×2 (08:15)
--- NOTE | 2021-04-09 08:52 | P.DS ---
Providers Expected date of discharge: 04/09/21 Attending physician: Onesimo Jacskon Consults: 04/07/21 16:22 Consult Physician Routine Consulting Provider: Jacki Ng Consult Reason/Comments: medical management Do you want consulting provider notified?: Yes Primary care physician: [facility] Course: This is a 60-year-old male who has been followed in our office by Dr. Jackson for continued complaints of right knee pain due to right knee osteoarthritis. Treatment options were discussed, and patient elected to undergo a right total knee arthroplasty. Patient was seen pre-operatively by Christi Vernon NP and orthodontic treatment coordinator Dr. Burt and cleared for surgery. Patient underwent a right total knee arthroplasty on 04/07/[address] Jackson. The procedure was performed without complication or sequelae. The patient is doing fairly well postoperatively. Vital signs and labs are stable on postoperative day #2. Patient was examined bedside today. Patient states she is overall doing very well and the pain in his right knee is well-controlled. She has been ambulating with a walker with minimal assistance. Patient has been working with physical therapy and passed physical therapy yesterday. Patient is tolerating her diet well. She is voiding with issues. She has not had a bowel movement yet, she denies abdominal pain. Patient is comfortable being discharged home today. Patient denies chest pain, shortness of breath, nausea, vomiting, fevers, chills. On examination, the patient is sitting up in the bedside chair in no apparent distress. She is alert and orientated 3. On inspection of the right knee, there is a clean, dry, intact Optifoam dressing in place. There is no bleeding or drainage the dressing. Patient has good strength and ROM of the right ankle and toes. Motor and sensory function is intact of the right lower extremity. The dorsalis pedis pulse is easily palpable, the right lower extremity is warm and well perfused with brisk capillary refill. Calf is soft and non-tender to palpation. Patient is discharged home with home health care today in good condition, pending medical clearance. Patient will follow-up with Dr. Jackson in the off ice in 2 weeks. Please see med rec for accurate list of discharge medication. Plan - Discharge Summary Discharge Rx Participant: No New Discharge Prescriptions: New Docusate [Colace] 100 mg PO BID #60 capsule HYDROcodone/APAP 7.5-325MG [[place] 7.5-325] 1 tab PO Q4H PRN 7 Days #40 tab PRN Reason: Pain Aspirin 81 mg PO BID 30 Days #60 tab Omeprazole 40 mg PO DAILY 30 Days #30 cap Diclofenac Sodium [Voltaren] 75 mg PO BID 30 Days #60 tab No Action Simvastatin [Zocor] 20 mg PO HS Levothyroxine Sodium [Synthroid] 75 mcg PO QAM Losartan Potassium 50 mg PO HS Discharge Medication List Simvastatin [Zocor] 20 mg PO HS 09/18/18 [History] Levothyroxine Sodium [Synthroid] 75 mcg PO QAM 04/01/21 [History] Losartan Potassium 50 mg PO HS 04/01/21 [History] Aspirin 81 mg PO BID 30 Days #60 tab 04/08/21 [Rx] Diclofenac Sodium [Voltaren] 75 mg PO BID 30 Days #60 tab 04/08/21 [Rx] Docusate [Colace] 100 mg PO BID #60 capsule 04/08/21 [Rx] Omeprazole 40 mg PO DAILY 30 Days #30 cap 04/08/21 [Rx] HYDROcodone/APAP 7.5-325MG [[place] 7.5-325] 1 tab PO Q4H PRN 7 Days #40 tab 04/09/21 [Rx] Follow up Appointment(s)/Referral(s): [facility], [NON-STAFF] - 1 Week Onesimo Jackson MD [Medical Doctor] - 2 Weeks Activity/Diet/Wound Care/Special Instructions: Weight bear as tolerated on operative leg with walker. Keep Optifoam dressing intact for 7-10 days. Take aspirin as prescribed for blood clot prevention. Take pain medication as prescribed. Follow-up in the office with Dr. Jackson in two weeks. Call the office with any questions or concerns, Discharge Disposition: HOME WITH HOME HEALTH SERVICES
[2021-04-09 10:24] LABS: African American GFR (CKD) 56.9 (60.0-200.0); Anion Gap 10.9 mmol/L (10.00-18.00); BUN/Creat Ratio 13.25 Ratio (12.00-20.00); Blood Urea Nitrogen 15.9 mg/dL (9.0-27.0); Calcium 8.7 mg/dL (8.7-10.3); Carbon Dioxide 24.1 mmol/L (20.0-27.5); Magnesium 1.8 mg/dL (1.5-2.4); Non-African American GFR(CKD) 49.1 (60.0-200.0)
--- NOTE | 2021-04-09 15:24 | P.PN ---
Subjective Progress Note Date: 04/09/21 No new complaints, ongoing pain control issues being addressed by primary team. Objective - Vital Signs Vital signs: Vital Signs Temp 98.7 F 04/09/21 04:09 Pulse 72 04/09/21 04:09 Resp 18 04/09/21 04:09 BP 118/77 04/09/21 04:09 Pulse Ox 98 04/09/21 04:09 Intake & Output 04/08/21 04/09/21 04/09/21 18:59 06:59 18:59 Intake Total 1700 Balance 1700 Intake: Intake, IV Titration 1200 Amount Lactated Ringers 1,000 ml 1200 @ 100 mls/hr IV .Q10H GEOR[facility]TE Rx#:[id number] Oral 500 Other: Voiding Method Bedside Commode # Voids 3 3 1 - Exam Gen: awake, alert HEENT: normocephalic, atraumatic, good hearing acuity, moist mucous membranes Resp: good air exchange, breathing comfortably with no accessory muscle use CVS: good distal perfusion x 4, GI: soft, NTTP, ND : no SPT, no CVAT, vidal catheter not present MSK: no pitting edema, no clubbing Neuro: non-focal, moving all extremities Psych: cooperative, euthymic mood - Labs CBC & Chem 7: 04/09/21 04:43 04/09/21 04:43 Labs: Abnormal Lab Results - Last 24 Hours (Table) 04/09/21 04/09/21 Range/Units 04:43 04:43 WBC 11.1 H (3.8-10.6) k/uL RBC 3.69 L (3.80-5.40) m/uL Hgb 11.2 L (11.4-16.0) gm/dL Neutrophils # 7.8 H (1.3-7.7) k/uL Est GFR (CKD-EPI)AfAm 56.9 L (60.0-200.0) Est GFR (CKD-EPI)NonAf 49.1 L (60.0-200.0) Glucose 116 H (70-110) mg/dL Assessment and Plan Assessment: Hyperlipidemia Hypothyroidism Right knee osteoarthritis status post arthroplasty Plan -Resume home Synthroid, simvastatin -Patient is ALLERGIC to the generic levothyroxine, and prefers to take her on Synthroid which is okay -Pain control -DVT prophylaxis -PT/OT Patient is full code
== END 2021-04-09 13:00 | disposition home health service (06) ==
LOC: OR 10:54 → 5NMEDONC 16:33 → OR 04-09 13:00
PROVIDERS: ATTEND Orthopaedic Surgery
DX: M17.11 Unilateral primary osteoarthritis, right knee (principal); Z20.822 Contact with and (suspected) exposure to COVID-19
CPT/HCPCS: 27447; 97116; 97161; 64999; 64448; 76942; 85025; 87635; 73560; C1776; C1713; J2250; J3370; J1100; J0690 ×3; J2405; J1885; J1170 ×2; 80048; 83735; 88300

== ENCOUNTER → 2021-05-26 | Outpatient (CLI) | payer BC, OTHER ==
--- NOTE | 2021-05-26 15:31 | US ---
EXAMINATION TYPE: US pelvis complete transvag DATE OF EXAM: 05/26/2021 COMPARISON: US CLINICAL HISTORY: R14.0 abdominal distension. Pt states pelvic pain, uterus removed 10+ yrs ago TECHNIQUE: Transvaginal (TV) and Transabdominal (TA) . Transabdominal sonographic images of the pel vis were acquired. Transvaginal sonographic images were medically necessary to better assess the fol lowing anatomy: Ovaries Date of LMP: age 50 1. Uterus: Surgically absent 2. Endometrium: Surgically absent 3. Right Ovary: Obscured by overlying bowel gas 4. Left Ovary: Obscured by overlying bowel gas 5. Bilateral Adnexa: wnl 6. Posterior cul-de-sac: wnl IMPRESSION: Unable to visualize ovaries, no free fluid within pelvis, bowel visualized, similar findings to scan in 2018
== END | disposition home or self-care (01) ==
LOC: RADUSWWP 14:55
PROVIDERS: ATTEND Obstetrics & Gynecology
DX: R14.0 Abdominal distension (gaseous) (principal); R10.2 Pelvic and perineal pain; Z90.710 Acquired absence of both cervix and uterus
CPT/HCPCS: 76830; 76856

== ENCOUNTER → 2023-07-19 | Outpatient (CLI) | payer BC ==
--- NOTE | 2023-07-19 08:50 | P.HPOB ---
History of Present Illness H&P Date: 07/19/23 Chief Complaint: The patient is here for her routine gynecologic exam and ma mmogram. This is a 62-year-old 012 with an LMP of 2011. The patient is status post TIFFANY for benign reasons. She states she used Kenalog cream infrequently for vulvar pruritus. She has had improvement using a vaginal moisturizer, but would still like a prescription for the Kenalog that she can use as needed. She is otherwise without gynecologic complaints. Review of Systems The patient's weight has been stable over the last year. She denies respiratory, cardiac, or G.I. problems. Past Medical History Past Medical History: Hyperlipidemia, Hypertension, Thyroid Disorder Additional Past Medical History / Comment(s): heart palpitations, severe diverticulosis status post partial colectomy. Seasonal allergies. 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 She has no other history of STDs. History of Any Multi-Drug Resistant Organisms: None Reported Past Surgical History: Hysterectomy Additional Past Surgical History / Comment(s): ovarian cystectomy. Partial colectomy 2021. colonoscopy 2021(next after 10yr). TIFFANY in 2011. Past Psychological History: No Psychological Hx Reported Smoking Status: Never smoker Past Alcohol Use History: Rare (2 drinks per year.) Past Drug Use History: None Reported Additional History: The patient has been since 11/04/2022 and this is her third marriage. 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 - Past Family History Mother Family Medical History: COPD Additional Family Medical History / Comment(s): Maternal aunt had breast cancer, cousin had colon cancer in another cousin had cervical cancer. Medications and Allergies Home Medications Medication Instructions Recorded Confirmed Type Simvastatin [Zocor] 20 mg PO HS 09/18/18 07/19/23 History Levothyroxine Sodium [Synthroid] 75 mcg PO QAM 04/01/21 07/19/23 History Losartan Potassium 50 mg PO HS 04/01/21 07/19/23 History Omeprazole 40 mg PO DAILY 30 Days #30 cap 04/08/21 07/19/23 Rx Aspirin 81 mg PO DAILY 06/15/21 07/19/23 History Cholecalciferol [Vitamin D3 (25 25 mcg PO DAILY 06/15/21 07/19/23 History Mcg = 1000 Iu)] Triamcinolone 0.1% Cream [Kenalog 1 applicatio TOPICAL BID PRN #30 gm 06/14/22 07/19/23 Rx 0.1% Cream] Allergies Allergy/AdvReac Type Severity Reaction Status Date / Time gabapentin Allergy Nausea & Unverified 07/19/23 08:25 Vomiting levothyroxine Allergy SOB,dizziness,heart Verified 07/19/23 08:25 skip a beat, arm numbness morphine Allergy Rapid Verified 07/19/23 08:25 Heart Rate Exam Intake and Output 07/18/23 07/19/23 07/19/23 22:59 06:59 14:59 Other: Weight 84.368 kg Blood pressure 128/84, height 5 feet 0 inches, weight 186 pounds, BMI 36.3, temperature 98.2, pulse 69, pulse oximeter 99%. Pulse 69, pulse oximeter 99%. This is a well-developed well-nourished white female who is alert and oriented times 3 in no acute distress. HEENT: Within normal limits. NECK: Supple without mass or thyromegaly. CHEST AND LUNGS: Clear to auscultation. HEART: Regular rate and rhythm. BREASTS: Are without mass or discharge. There is central left nipple inversion which the patient states she has had for many years. AXILLARY EXAM: Negative for adenopathy. BACK: Negative for CVA tenderness. ABDOMEN: Soft, nontender, without palpable masses. PELVIC EXAM: External genitalia appears normal with mild atrophy. Vagina appears normal with mild atrophy. There is no evidence of prolapse. Bimanual examination is negative for mass or tenderness. RECTAL EXAM: Rectovaginal exam is negative for mass or tenderness and is negative for occult blood. EXTREMITIES: Nontender. IMPRESSION: 1. 62-year-old menopausal female status post TIFFANY for benign reasons, with normal gynecologic exam. 2. Intermittent vulvar pruritus improved with Kenalog cream and a moisturizer. PLAN: 1. Pap smears have been discontinued. 2. Self breast awareness was discussed with the patient. We have also discussed symptoms associated with inflammatory breast cancer. 3. Screening mammogram will be done today. 4. Osteoporosis prevention was discussed. I have stressed the importance of adequate calcium, vitamin D and regular exercise. Recommended amounts of calcium and vitamin D were also discussed. The patient states she recently had a normal bone density test done in March 2023 and she states it was done at [facility]. 5. An electronic prescription for Kenalog 0.1% cream will be sent to my her pharmacy in [place]. She can use it 2 times daily as needed for vulvar pruritus. 6. She was advised to return in one year for her annual well woman exam.
[2023-07-19 09:41] VITALS: BP 128/84; PULSE 69; RESP 17; TEMP 98.2
== END ==
LOC: WWCWWP 08:19
PROVIDERS: ATTEND Obstetrics & Gynecology
DX: Z01.419 Encounter for gynecological examination (general) (routine) without abnormal findings (principal); L29.2 Pruritus vulvae; Z78.0 Asymptomatic menopausal state; Z80.3 Family history of malignant neoplasm of breast; Z90.710 Acquired absence of both cervix and uterus; Z88.8 Allergy status to other drugs, medicaments and biological substances; Z88.5 Allergy status to narcotic agent; Z91.09 Other allergy status, other than to drugs and biological substances

== ENCOUNTER → 2023-07-19 | Outpatient (CLI) | payer BC ==
--- NOTE | 2023-07-20 07:43 | MM ---
Reason for Exam: Screening (asymptomatic). Last mammogram was performed 1 year(s) and 1 month(s) ago. Patient History: Menarche at age 12. First Full-Term at age 18. Left ovary removed at age 50. Hysterectomy at age 50. Postmenopausal. Maternal aunt had breast cancer, age 50. Risk Values: Saira 5 year model risk: 1.1%. NCI Lifetime model risk: 5.0%. Prior Study Comparison: 09/12/2016 Screening Mammogram, Unknown. 07/18/2017 Bilateral Screening Mammogram, [facility]. 09/18/2018 Bilateral Screening Mammogram, [facility]. 12/24/2019 Bilateral Screening Mammogram, [facility]. 05/18/2021 Bilateral Screening Mammogram, [facility]. 06/14/2022 Bilateral MG screening mammo w CAD, [facility]. Tissue Density: The breasts are almost entirely fatty. Findings: Analyzed By CAD. There is no suspicious group of microcalcifications or new suspicious mass. Benign-appearing calcifications right breast. Overall Assessment: Benign, BI-RAD 2 Management: Screening Mammogram of both breasts in [address] [facility] will attempt to contact patient to return for supplemental views and ultrasound if indicated. Patient should continue monthly self-breast exams. A clinical breast exam by your physician is recommended on an annual basis. This exam should not preclude additional follow-up of suspicious palpable abnormalities. Note on Saira scores and lifetime risk: 1. A Saira score greater than 3% is considered moderate risk. If this is the case, consider specialist referral to assess eligibility for a risk reducing agent. 2. If overall lifetime risk for the development of breast cancer is 20% or higher, the patient may qualify for future screening with alternating mammogram and breast MRI. Electronically signed and approved by: Markus Garcia DO
== END | disposition home or self-care (01) ==
LOC: RADMAMWWP 08:10
PROVIDERS: ATTEND Obstetrics & Gynecology
DX: Z12.31 Encounter for screening mammogram for malignant neoplasm of breast (principal); Z80.3 Family history of malignant neoplasm of breast; Z78.0 Asymptomatic menopausal state
CPT/HCPCS: 77067